=== PATIENT | female | born 1965 | race Caucasian/White ===

== ENCOUNTER 2020-03-09 11:28 | Observation (INO) | payer OTHER ==
[2020-03-09] MEDS ORDERED: SODIUM CHLORIDE 0.9% 1,000 ML IV STA (11:51)
[2020-03-09] MEDS ORDERED: PANTOPRAZOLE 40 MG/10 ML VIAL IVP STA (11:51)
[2020-03-09] MEDS ORDERED: KETOROLAC 15 MG/ML 1 ML VIAL IVP STA (11:51)
[2020-03-09] MEDS ORDERED: METOCLOPRAMIDE 5 MG/ML 2 ML VIAL IVP STA (11:51)
--- NOTE | 2020-03-09 11:55 | ED ---
General Adult HPI - General Chief complaint: Abdominal Pain Stated complaint: abdominal pain Time Seen by Provider: 03/09/20 11:42 Source: patient, RN notes reviewed Mode of arrival: wheelchair Limitations: no limitations - History of Present Illness Initial comments: patient is a pleasant 84-year-old female presenting to the emergency Department with complaints of abdominal discomfort. Onset of symptoms was around a half an hour ago. Patient did have some pressure in her chest however that has resolved. Patient has pressure and fullness of her upper abdomen. There is some radiation towards the right shoulder. Patient did have nausea and did vomit once. There is still some nausea. No constipation or diarrhea. Patient did have a gallbladder attack years ago however symptoms are not similar to this. No back pain. No diaphoresis. No dyspnea. - Related Data Home Medications Medication Instructions Recorded Confirmed Acetaminophen Tab [Tylenol Tab] 1,000 mg PO Q6HR PRN 03/09/20 03/09/20 Ibuprofen [Motrin Ib] 800 mg PO Q8H PRN 03/09/20 03/09/20 guaiFENesin SYRUP 100MG/5ML 600 mg PO Q12H PRN 03/09/20 03/09/20 [Robitussin] Allergies Allergy/AdvReac Type Severity Reaction Status Date / Time No Known Allergies Allergy Verified 03/09/20 13:00 Review of Systems ROS Statement: Those systems with pertinent positive or pertinent negative responses have been documented in the HPI. ROS Other: All systems not noted in ROS Statement are negative. Constitutional: Denies: fever Eyes: Denies: eye pain ENT: Denies: ear pain Respiratory: Denies: cough, dyspnea Cardiovascular: Reports: as per HPI Endocrine: Denies: fatigue Gastrointestinal: Reports: as per HPI, abdominal pain, nausea, vomiting Genitourinary: Denies: dysuria Musculoskeletal: Denies: back pain Skin: Denies: rash Neurological: Denies: weakness Past Medical History Past Medical History: No Reported History Past Surgical History: No Surgical Hx Reported Smoking Status: Never smoker Past Alcohol Use History: None Reported Past Drug Use History: None Reported General Exam Limitations: no limitations General appearance: alert Head exam: Present: normocephalic Eye exam: Present: normal appearance ENT exam: Present: normal oropharynx Neck exam: Present: normal inspection Respiratory exam: Present: normal lung sounds bilaterally. Absent: chest wall tenderness Cardiovascular Exam: Present: regular rate, normal rhythm Expanded Peripheral pulses: 2+: Radial (R), Radial (L), Dorsalis Pedis (R), Dorsalis Pedis (L) GI/Abdominal exam: Present: soft, tenderness (mild tenderness upper abdomen, slightly more on the right), normal bowel sounds. Absent: distended, guarding, rebound, rigid, pulsatile mass Extremities exam: Present: normal inspection. Absent: pedal edema, calf tenderness Neurological exam: Present: alert Psychiatric exam: Present: normal affect, normal mood Skin exam: Present: normal color Course Vital Signs 03/09/20 03/09/20 03/09/20 11:29 11:55 13:14 Temperature 97.0 F L Pulse Rate 88 73 87 Respiratory 18 12 12 Rate Blood Pressure 177/120 141/116 119/68 O2 Sat by Pulse 99 96 96 Oximetry EKG Findings - EKG Comments: EKG Findings:: normal sinus rhythm at 89. IL 140. QRS 98. QT 382. QTC 464. Normal axis. Normal QRS. No acute ST change. Medical Decision Making - Medical Decision Making patient reevaluated and significantly improved. Blood pressure improved. Patient and family updated on results and plan. Case was discussed in detail with Dr. mp medrano, who will admit covering for hospital call. She is in agr eement with repeating cardiac enzymes and HIDA scan. - Lab Data Result diagrams: 03/09/20 12:10 03/09/20 12:10 Lab Results 03/09/20 03/09/20 03/09/20 Range/Units 12:10 12:10 12:10 WBC 7.0 (3.8-10.6) k/uL RBC 4.63 (3.80-5.40) m/uL Hgb 14.7 (11.4-16.0) gm/dL Hct 43.5 (34.0-46.0) % MCV 94.1 (80.0-100.0) fL MCH 31.8 (25.0-35.0) pg MCHC 33.8 (31.0-37.0) g/dL RDW 11.9 (11.5-15.5) % Plt Count 367 (150-450) k/uL Neutrophils % 54 % Lymphocytes % 32 % Monocytes % 5 % Eosinophils % 4 % Basophils % 2 % Neutrophils # 3.8 (1.3-7.7) k/uL Lymphocytes # 2.3 (1.0-4.8) k/uL Monocytes # 0.4 (0-1.0) k/uL Eosinophils # 0.3 (0-0.7) k/uL Basophils # 0.1 (0-0.2) k/uL PT 9.5 (9.0-12.0) sec INR 0.9 (<1.2) APTT 24.7 (22.0-30.0) sec Sodium 139 (137-145) mmol/L Potassium 4.1 (3.5-5.1) mmol/L Chloride 104 (98-107) mmol/L Carbon Dioxide 26 (22-30) mmol/L Anion Gap 9 mmol/L BUN 14 (7-17) mg/dL Creatinine 0.58 (0.52-1.04) mg/dL Est GFR (CKD-EPI)AfAm >90 (>60 ml/min/1.73 sqM) Est GFR (CKD-EPI)NonAf >90 (>60 ml/min/1.73 sqM) Glucose 97 (74-99) mg/dL Calcium 9.6 (8.4-10.2) mg/dL Total Bilirubin 0.7 (0.2-1.3) mg/dL AST 70 H (14-36) U/L ALT 31 (4-34) U/L Alkaline Phosphatase 90 (38-126) U/L Troponin I (0.000-0.034) ng/mL Total Protein 8.0 (6.3-8.2) g/dL Albumin 4.5 (3.5-5.0) g/dL Amylase 48 (30-110) U/L Lipase 252 (23-300) U/L 03/09/20 Range/Units 12:10 WBC (3.8-10.6) k/uL RBC (3.80-5.40) m/uL Hgb (11.4-16.0) gm/dL Hct (34.0-46.0) % MCV (80.0-100.0) fL MCH (25.0-35.0) pg MCHC (31.0-37.0) g/dL RDW (11.5-15.5) % Plt Count (150-450) k/uL Neutrophils % % Lymphocytes % % Monocytes % % Eosinophils % % Basophils % % Neutrophils # (1.3-7.7) k/uL Lymphocytes # (1.0-4.8) k/uL Monocytes # (0-1.0) k/uL Eosinophils # (0-0.7) k/uL Basophils # (0-0.2) k/uL PT (9.0-12.0) sec INR (<1.2) APTT (22.0-30.0) sec Sodium (137-145) mmol/L Potassium (3.5-5.1) mmol/L Chloride (98-107) mmol/L Carbon Dioxide (22-30) mmol/L Anion Gap mmol/L BUN (7-17) mg/dL Creatinine (0.52-1.04) mg/dL Est GFR (CKD-EPI)AfAm (>60 ml/min/1.73 sqM) Est GFR (CKD-EPI)NonAf (>60 ml/min/1.73 sqM) Glucose (74-99) mg/dL Calcium (8.4-10.2) mg/dL Total Bilirubin (0.2-1.3) mg/dL AST (14-36) U/L ALT (4-34) U/L Alkaline Phosphatase (38-126) U/L Troponin I <0.012 (0.000-0.034) ng/mL Total Protein (6.3-8.2) g/dL Albumin (3.5-5.0) g/dL Amylase (30-110) U/L Lipase (23-300) U/L - Radiology Data Radiology results: report reviewed (Called her ultrasound does show cholelithiasis with a stone near the neck. There is some edema, unclear if this is acute. No wall thickening. This was discussed with radiologist.), image reviewed (chest x-ray shows no acute process. KUB shows no acute process) Disposition Clinical Impression: Abdominal pain, Chest pain Disposition: ADMITTED IP TO THIS HOSP Is patient prescribed a controlled substance at d/c from ED?: No Referrals: None,Stated [Primary Care Provider] - 1-2 days Decision Time: 13:46
[2020-03-09 12:26] LABS: Basophils # (A) 0.1 k/uL (0-0.2); Basophils % (A) 2 %; Eosinophils # (A) 0.3 k/uL (0-0.7); Eosinophils % (A) 4 %; HCT 43.5 % (34.0-46.0); HGB 14.7 gm/dL (11.4-16.0); Lymphocytes # (A) 2.3 k/uL (1.0-4.8); Lymphocytes % (A) 32 %; MCH 31.8 pg (25.0-35.0); MCHC 33.8 g/dL (31.0-37.0); MCV 94.1 fL (80.0-100.0); Mean Platelet Volume 6.8; Monocytes # (A) 0.4 k/uL (0-1.0); Monocytes % (A) 5 %; Neutrophils # (A) 3.8 k/uL (1.3-7.7); Neutrophils % (A) 54 %; Platelet Count 367 k/uL (150-450); RBC 4.63 m/uL (3.80-5.40); RDW 11.9 % (11.5-15.5)
--- NOTE | 2020-03-09 12:30 | XR ---
EXAMINATION TYPE: XR chest 2V DATE OF EXAM: 03/09/2020 COMPARISON: NONE HISTORY: Abdominal pain, lower right-sided chest pain TECHNIQUE: Frontal and lateral views of the chest are obtained. FINDINGS: There is no focal air space opacity, pleural effusion, or pneumothorax seen. The cardiac silhouette size is within normal limits. There is increased AP diameter of the chest with relative fl attening the hemidiaphragms, consider underlying COPD. There are overlying cardiac leads. The osseous structures are intact. IMPRESSION: No acute cardiopulmonary process.
--- NOTE | 2020-03-09 12:32 | XR ---
KUB HISTORY: Right upper quadrant pain, abdominal pain Frontal KUB and 2 images The lung bases are clear. There is no evident pneumoperitoneum or bowel obstruction. Bone mineralizat ion is normal. No pathologic calcification. IMPRESSION: Nonspecific KUB
[2020-03-09 12:35] LABS: ALT 31 U/L (4-34); AST 70 U/L (14-36); African American GFR (CKD) >90 (>60 ml/min/1.73 sqM); Albumin 4.5 g/dL (3.5-5.0); Alkaline Phosphatase 90 U/L (38-126); Amylase 48 U/L (30-110); Anion Gap 9 mmol/L; Blood Urea Nitrogen 14 mg/dL (7-17); Calcium 9.6 mg/dL (8.4-10.2); Carbon Dioxide 26 mmol/L (22-30); Chloride 104 mmol/L (98-107); Glucose 97 mg/dL (74-99); Non-African American GFR(CKD) >90 (>60 ml/min/1.73 sqM); Potassium 4.1 mmol/L (3.5-5.1); Sodium 139 mmol/L (137-145); Total Bilirubin 0.7 mg/dL (0.2-1.3)
[2020-03-09 12:54] LABS: INR 0.9 (<1.2); Partial Thromboplastin Time 24.7 sec (22.0-30.0); Prothrombin Time 9.5 sec (9.0-12.0)
--- NOTE | 2020-03-09 13:06 | US ---
EXAMINATION TYPE: US gallbladder DATE OF EXAM: 03/09/2020 COMPARISON: NONE CLINICAL HISTORY: pain. Pt states pain that radiates to right shoulder, vomiting EXAM MEASUREMENTS: Liver Length: 20.5 cm Gallbladder Wall: 0.3 cm CBD: 0.5 cm Right Kidney: 11.3 x 5.0 x 4.9 cm Pancreas: Obscured by bowel gas Liver: Enlarged, echogenic, difficult to penetrate. Gallbladder: Multiple gallstones with one appearing non-mobile in neck. There is no gallbladder wall thickening. There is pericholecystic edema. Esol Teacher Assistant reports negative sonographic Chaney sign. CBD: Normal. Right Kidney: Normal. IMPRESSION: 1. Cholelithiasis. Pericholecystic edema is seen which may be due to acute cholecystitis versus adjac ent liver disease. Nuclear medicine HIDA scan could be obtained for further characterization. 2. Enlarged fatty liver. Dr. Shannan Daniels discussed findings with Dr. Maninder Harrison via the phone on 03/09/2020 at 1:00 PM, a nd results were acknowledged.
[2020-03-09] MEDS ORDERED: NITROGLYCERIN SL TABS 0.4 MG TAB SUBLINGUAL PRN (13:46)
[2020-03-09] MEDS ORDERED: ASPIRIN 81 MG PO STA (13:46)
[2020-03-09] MEDS ORDERED: MORPHINE SULFATE 4 MG/ML SYRINGE IV PRN ×2 (13:46→14:52)
--- NOTE | 2020-03-09 14:43 | P.HPIM ---
History of Present Illness H&P Date: 03/09/20 Chief Complaint: abdominal pain Patient is a 54 yo CF with no past medical history who presented to the emergency department with abdominal pain. On arrival her blood pressure was elevated at 177/120 adn improved with toradol and reglan. She underwent a liver US which showed fatty infiltration of the liver, gallstones, and possible acute cholecystitis. Chest x-ray and KUB showed no acute process. EKG showed normal sinus rhythm at a rate of [address]-T wave changes. Labs showed AST 70, but were otherwise unremarkable. Patient seen and examined at bedside in the emergency department. She reports she had just finished a closing when she started having a pressure in the right side of abdomen and right shoulder. It started as a pressure and then the pain began increasing. She was feeling nausea and then had an episode of emesis that appeared as digested food. Immediately felt better after vomiting but then the pain returned. + SOB, No presyncope, No palpiatations, no diaphoresis, + tremors. + subjective fever X 1 a couple of days at home, she did not take her temperature. + chronic intermittent diarrhea 2 times daily. Unsure of relation to food. Frequent heart burn, relieved with baking soda. Reports that a couple times a year she has a gallbladder attack. Hospitalized once before for gallbladder pain and testing was inconclusive but showed sludge, unsure of which test it was maybe a MRI, but not an ultrasound. Review of Systems Pertinent positives and negatives as discussed in HPI, a complete review of systems was performed and all other systems are negative. Past Medical History Past Medical History: No Reported History Additional Past Surgical History / Comment(s): adenoidectomy Smoking Status: Never smoker Past Alcohol Use History: None Reported, Rare Past Drug Use History: None Reported - Past Family History Father Family Medical History: Coronary Artery Disease (CAD), Myocardial Infarction ([place]) Additional Family Medical History / Comment(s): 5 vessel bypass in his 50s Mother Family Medical History: Diabetes Mellitus, Hypertension Medications and Allergies Home Medications Medication Instructions Recorded Confirmed Type Acetaminophen Tab [Tylenol Tab] 1,000 mg PO Q6HR PRN 03/09/20 03/09/20 History Ibuprofen [Motrin Ib] 800 mg PO Q8H PRN 03/09/20 03/09/20 History guaiFENesin SYRUP 100MG/5ML 600 mg PO Q12H PRN 03/09/20 03/09/20 History [Robitussin] Allergies Allergy/AdvReac Type Severity Reaction Status Date / Time No Known Allergies Allergy Verified 03/09/20 13:00 Physical Exam Osteopathic Statement: *. No significant issues noted on an osteopathic structural exam other than those noted in the History and Physical/Consult. Vitals: Vital Signs Temp Pulse Resp BP Pulse Ox 03/09/20 13:58 98.8 F 86 12 122/67 98 03/09/20 13:14 87 12 119/68 96 03/09/20 11:55 73 12 141/116 96 03/09/20 11:29 97.0 F L 88 18 177/120 99 Intake and Output 03/08/20 03/09/20 03/09/20 22:59 06:59 14:59 Other: Weight 99.79 kg General: non toxic, no distress, appears at stated age Derm: warm, dry Head: atraumatic, normocephalic, symmetric Eyes: EOMI, no lid lag, anicteric sclera, pupils equal round reactive to light ENT: Nose and ears atraumatic, no thrush, no pharyngeal erythema Neck: No thyromegaly, no cervical lymphadenopathy, trachea midline, supple Mouth: no lip lesion, mucus membranes moist Cardiovascular: S1S2 reg, no murmur, positive posterior tibial pulse bilateral, no edema, capillary refill less than 2 seconds Lungs: clear to ascultation bilateral, no ronchi, no rales, no wheeze, no accessory muscle use Abdominal: soft, +tender to palpation RUQ , no guarding, no appreciable organomegaly, normal bowel sounds Ext: no gross muscle atrophy, muscle strength muscle strength 5 out of 5 in all 4 extremities, no contractures Neuro: CN II-XI grossly intact, light touch intact all 4 extremities, finger to nose within normal limits, Psych: Alert, oriented, appropriate affect Results CBC & Chem 7: 03/09/20 12:10 03/09/20 12:10 Labs: Abnormal Lab Results - Last 24 Hours (Table) 03/09/20 Range/Units 12:10 AST 70 H (14-36) U/L Chest x-ray: report reviewed Abdominal x-ray: report reviewed Thrombosis Risk Factor Assmnt - DVT/VTE Prophylaxis DVT/VTE Prophylaxis: Low risk, early ambulation encouraged Assessment and Plan Assessment: Acute abdominal pain, suspect cholecystitis - check HIDA to rule out acute cholecystitis - repeat CMP in AM - NPO - Consult surgery Fatty infiltration of the liver - check AM fasting blood sugar, A1C, Cholesterol profile - weight loss - Hep profile - Establish with PCP Elevated BP without diagnosis of HTN - follow BP suspect pain related. The patient is placed in observation with an anticipated less than [address] ay for evaluation of abdominal pain. Surrogate decision-maker: CODE STATUS:Full DVT prophylaxis: SCDs Discussed with: Patient, nursing, , ED physician Anticipated discharge date: 1-[address]: home A total of 65 minutes was spent on the care of this complex patient more than 50% of the time was spent in counseling and care coordination.
[2020-03-09] MEDS ORDERED: ONDANSETRON 4 MG/2 ML VIAL IVP PRN (14:52)
[2020-03-09] MEDS ORDERED: KETOROLAC 15 MG/ML 1 ML VIAL IVP PRN (14:52)
[2020-03-09] MEDS ORDERED: MELATONIN 3 MG TABLET PO PRN (14:52)
[2020-03-09] MEDS ORDERED: ACETAMINOPHEN TAB 325 MG TAB PO PRN (14:52)
[2020-03-09] MEDS ORDERED: NALOXONE 0.4 MG/ML 1 ML VIAL IV PRN (14:52)
--- NOTE | 2020-03-09 16:54 | NM ---
EXAMINATION TYPE: NM hepatobiliary w CCK DATE OF EXAM: 03/09/2020 COMPARISON: NONE HISTORY: TECHNIQUE: After the intravenous administration of 4.7 mCi Tc 99m Mebrofenin hepatobiliary scintigrap hy is performed. Immediate images post injection. FINDINGS: There is satisfactory initial accumulation of tracer by the liver. The gallbladder is visualized wit hin 12 minutes. The small bowel activity is noted within 45 minutes. At one hour CCK was administer ed, patient was injected with 2.0 mcg of Kinevac, and gallbladder ejection fraction is calculated at 97 %, in the normal range. Therefore there is no scintigraphic evidence of cystic or common bile jess t obstruction to suggest acute cholecystitis or gallbladder dyskinesia. IMPRESSION: Normal exam. No evidence of cystic duct or common bile duct obstruction. No focal liver d efect.
[2020-03-09] MEDS: SODIUM CHLORIDE 0.9% 1,000 ML IV SCH (17:18)
[2020-03-10] MEDS: SODIUM CHLORIDE 0.9% 1,000 ML IV SCH ×2 (01:45→08:08)
[2020-03-10 04:58] VITALS: PULSE 81; RESP 18
[2020-03-10 08:15] VITALS: BP 137/76; TEMP 97.9
[2020-03-10 08:26] LABS: HCT 38.7 % (34.0-46.0); HGB 12.9 gm/dL (11.4-16.0); MCH 32.3 pg (25.0-35.0); MCHC 33.5 g/dL (31.0-37.0); MCV 96.5 fL (80.0-100.0); Mean Platelet Volume 6.4; Platelet Count 278 k/uL (150-450); RDW 12.1 % (11.5-15.5); WBC 4.2 k/uL (3.8-10.6)
[2020-03-10 08:41] LABS: ALT 66 U/L (4-34); AST 73 U/L (14-36); African American GFR (CKD) >90 (>60 ml/min/1.73 sqM); Albumin 3.7 g/dL (3.5-5.0); Alkaline Phosphatase 69 U/L (38-126); Anion Gap 3 mmol/L; Blood Urea Nitrogen 9 mg/dL (7-17); Calcium 8.9 mg/dL (8.4-10.2); Carbon Dioxide 29 mmol/L (22-30); Chloride 108 mmol/L (98-107); Cholesterol 209 mg/dL (<200); Glucose 96 mg/dL (74-99); HDL Cholesterol 50 mg/dL (40-60); LDL Cholesterol,Calculated 129 mg/dL (0-99); Non-African American GFR(CKD) >90 (>60 ml/min/1.73 sqM); Potassium 4.4 mmol/L (3.5-5.1); Sodium 140 mmol/L (137-145); Total Bilirubin 0.8 mg/dL (0.2-1.3); Total Protein 6.7 g/dL (6.3-8.2); Triglycerides 152 mg/dL (<150)
[2020-03-10] MEDS ORDERED: PANTOPRAZOLE 40 MG/10 ML VIAL IVP SCH (09:00)
[2020-03-10] MEDS ORDERED: ASPIRIN 325 MG TAB PO SCH (09:00)
--- NOTE | 2020-03-10 13:27 | P.GSCN ---
History of Present Illness Consult date: 03/10/20 History of present illness: This 54-year-old female presented with a chief complaint of abdominal pain mostly in her right upper quadrant. She's had on and off pain like this before in the past and she still checked gallbladder sludge at that time. She denies any fevers or chills she states she had been eating a fish cotton. She states that today her pain is much better. She states she is hungry and should like to go home. She denies any nausea or vomiting Ultrasound showed gallstones and HIDA scan revealed no evidence of cholecystitis. Past Medical History Past Medical History: No Reported History Additional Past Medical History / Comment(s): Pleurisy History of Any Multi-Drug Resistant Organisms: None Reported Past Surgical History: Adenoidectomy Additional Past Surgical History / Comment(s): adenoidectomy Past Anesthesia/Blood Transfusion Reactions: No Reported Reaction, Motion Sickne ss Smoking Status: Never smoker Past Alcohol Use History: None Reported, Rare Past Drug Use History: None Reported - Past Family History Father Family Medical History: Coronary Artery Disease (CAD), Myocardial Infarction ([place]) Additional Family Medical History / Comment(s): 5 vessel bypass in his 50s Mother Family Medical History: Diabetes Mellitus, Hypertension Medications and Allergies Home Medications Medication Instructions Recorded Confirmed Type Acetaminophen Tab [Tylenol Tab] 1,000 mg PO Q6HR PRN 03/09/20 03/09/20 History Ibuprofen [Motrin Ib] 800 mg PO Q8H PRN 03/09/20 03/09/20 History guaiFENesin SYRUP 100MG/5ML 600 mg PO Q12H PRN 03/09/20 03/09/20 History [Robitussin] Allergies Allergy/AdvReac Type Severity Reaction Status Date / Time No Known Allergies Allergy Verified 03/09/20 13:00 Surgical - Exam Osteopathic Statement: *. No significant issues noted on an osteopathic structural exam other than those noted in the History and Physical/Consult. Vital Signs Temp Pulse Resp BP Pulse Ox 97.0 F L 88 18 177/120 99 03/09/20 11:29 03/09/20 11:29 03/09/20 11:29 03/09/20 11:29 03/09/20 11:29 - General well developed, well nourished, no distress - Respiratory normal expansion, normal respiratory effort - Abdomen Abdomen: soft, non tender - Psychiatric oriented to time, oriented to person, oriented to place Results - Labs 03/10/20 08:03 03/10/20 08:03 Abnormal Lab Results - Last 24 Hours (Table) 03/10/20 Range/Units 08:03 Chloride 108 H (98-107) mmol/L AST 73 H (14-36) U/L ALT 66 H (4-34) U/L Triglycerides 152 H (<150) mg/dL Cholesterol 209 H (<200) mg/dL LDL Cholesterol, Calc 129 H (0-99) mg/dL Diabetes panel 03/10/20 Range/Units 08:03 Sodium 140 (137-145) mmol/L Potassium 4.4 (3.5-5.1) mmol/L Chloride 108 H (98-107) mmol/L Carbon Dioxide 29 (22-30) mmol/L BUN 9 (7-17) mg/dL Creatinine 0.62 (0.52-1.04) mg/dL Glucose 96 (74-99) mg/dL Calcium 8.9 (8.4-10.2) mg/dL AST 73 H (14-36) U/L ALT 66 H (4-34) U/L Alkaline Phosphatase 69 (38-126) U/L Total Protein 6.7 (6.3-8.2) g/dL Albumin 3.7 (3.5-5.0) g/dL Triglycerides 152 H (<150) mg/dL HDL Cholesterol 50 (40-60) mg/dL Calcium panel 03/10/20 Range/Units 08:03 Calcium 8.9 (8.4-10.2) mg/dL Albumin 3.7 (3.5-5.0) g/dL Pituitary panel 03/10/20 Range/Units 08:03 Sodium 140 (137-145) mmol/L Potassium 4.4 (3.5-5.1) mmol/L Chloride 108 H (98-107) mmol/L Carbon Dioxide 29 (22-30) mmol/L BUN 9 (7-17) mg/dL Creatinine 0.62 (0.52-1.04) mg/dL Glucose 96 (74-99) mg/dL Calcium 8.9 (8.4-10.2) mg/dL Adrenal panel 10/27/20 Range/Units 08:03 Sodium 140 (137-145) mmol/L Potassium 4.4 (3.5-5.1) mmol/L Chloride 108 H (98-107) mmol/L Carbon Dioxide 29 (22-30) mmol/L BUN 9 (7-17) mg/dL Creatinine 0.62 (0.52-1.04) mg/dL Glucose 96 (74-99) mg/dL Calcium 8.9 (8.4-10.2) mg/dL Total Bilirubin 0.8 (0.2-1.3) mg/dL AST 73 H (14-36) U/L ALT 66 H (4-34) U/L Alkaline Phosphatase 69 (38-126) U/L Total Protein 6.7 (6.3-8.2) g/dL Albumin 3.7 (3.5-5.0) g/dL Assessment and Plan Assessment: Symptomatic cholelithiasis Plan: Patient has signs and symptoms consistent with symptomatic cholelithiasis possibly chronic cholecystitis. She does not have a white count no fever and HIDA scan was negative for acute cholecystitis. I discussed with the patient that she could be discharged home today on antibiotics and follow-up to my office planned for tomorrow and we will schedule her for an outpatient cholecystectomy at that time. Patient was agreeable with this plan. She was told that if she begins having fevers worsening pain to return to the hospital.
[2020-03-10 15:20] LABS: Hepatitis A Antibody IgM Non-Reactive (Non-Reactive); Hepatitis B Core IgM Non-Reactive (Non-Reactive); Hepatitis B Surface Antigen Non-Reactive (Non-Reactive); Hepatitis C IgG Antibody Non-Reactive (Non-Reactive)
--- NOTE | 2020-03-10 16:02 | P.DS ---
Providers Date of admission: 03/09/20 13:47 Expected date of discharge: 03/10/20 Attending physician: Maribell Galindo DO Consults: 03/09/20 14:24 Consult Physician Urgent Consulting Provider: López Nicholas Consult Reason/Comments: Gallstone, possible acute myrtle Do you want consulting provider notified?: Yes Primary care physician: Stated None Hospital Course: Discharge Diagnosis: Acute Cholecystitis HLD Fatty liver Elevated BP without hx of HTN, resolved Hospital Course: Patient is a 54 yo CF with no past medical history who presented to the emergency department with abdominal pain. On arrival her blood pressure was elevated at 177/120 adn improved with toradol and reglan. She underwent a liver US which showed fatty infiltration of the liver, gallstones, and possible acute cholecystitis. Chest x-ray and KUB showed no acute process. EKG showed normal sinus rhythm at a rate of [address]-T wave changes. Labs showed AST 70, but were otherwise unremarkable. She underwent a HIDA scan which showed a normal ejection fraction gallbladder function. She was seen by surgery who recommended outpatient cholecystectomy. Low-fat, dairy free, healthy diet. They also recommended a course of Augmentin. Her acute hepatitis panel was nonreactive. She was found have elevated cholesterol. We discussed that she likely would benefit from statin therapy however this should not be started until after her cholecystectomy. I have provided with her the prescription and instructions. She did not have a primary care physician prior to hospitalization and she plans on establishing with Dr. Micheal Pinon. Her pain was well-controlled and she was discharged in stable condition. She was given instructions to return to the ER with worsening pain, fever, or other acute concerns. Patient seen and examined at bedside. Has a bloated feeling in her right upper quadrant, no chest pain, no shortness of breath, no nausea. Tolerated her clear liquid diet last night while. Vital signs reviewed and stable. General: non toxic, no distress, appears at stated age Derm: warm, dry Head: atraumatic, normocephalic, symmetric Eyes: EOMI, no lid lag, anicteric sclera Mouth: no lip lesion, mucus membranes moist Cardiovascular: S1S2 reg, no murmur, positive posterior tibial pulse bilateral, Lungs: CTA bilateral, no rhonchi, no rales , no accessory muscle use Abdominal: soft, mild tender to palpation right upper quadrant, no guarding, no appreciable organomegaly Ext: no gross muscle atrophy, no edema, no contractures Neuro: CN II-XI grossly intact, no focal neuro deficits Psych: Alert, oriented, appropriate affect A total of 35 minutes of time were spent preparing this complex discharge hannah mathis . Patient Condition at Discharge: Stable Plan - Discharge Summary Discharge Rx Participant: No New Discharge Prescriptions: New Amoxicillin/Potassium Clav [Augmentin 875-125 Tablet] 1 tab PO Q12HR 7 Days #14 tab Atorvastatin [Lipitor] 40 mg PO DAILY #30 tablet Continue guaiFENesin SYRUP 100MG/5ML [Robitussin] 600 mg PO Q12H PRN PRN Reason: Cough Ibuprofen [Motrin Ib] 800 mg PO Q8H PRN PRN Reason: Pain Or Fever > 100.5 Acetaminophen Tab [Tylenol] 1,000 mg PO Q6HR PRN PRN Reason: Pain Or Fever > 100.5 Discharge Medication List Acetaminophen Tab [Tylenol] 1,000 mg PO Q6HR PRN 03/09/20 [History] Ibuprofen [Motrin Ib] 800 mg PO Q8H PRN 03/09/20 [History] guaiFENesin SYRUP 100MG/5ML [Robitussin] 600 mg PO Q12H PRN 03/09/20 [History] Amoxicillin/Potassium Clav [Augmentin 875-125 Tablet] 1 tab PO Q12HR 7 Days #14 tab 03/10/20 [Rx] Atorvastatin [Lipitor] 40 mg PO DAILY #30 tablet 03/10/20 [Rx] Follow up Appointment(s)/Referral(s): Rafita Red DO [Doctor of Osteopathic Medicine] - 03/11/20 9:45 am None,Stated [Primary Care Provider] - 1-2 days Micheal Pinon [STAFF PHYSICIAN] - 1 Week Patient Instructions/Handouts: Low Fat Diet (DC) Activity/Diet/Wound Care/Special Instructions: Activity: as tolerated Diet: Soft [place] Diet, no dairy, no greasy food Special Instructions: Do not start Lipitor until after gallbladder removal. Total Cholesterol 209 Triglycerides 152 LDL 129 HDL 50 Discharge Disposition: HOME SELF-CARE
== END 2020-03-10 15:20 | disposition home or self-care (01) ==
LOC: EC 11:28 → 1SOBS 13:47
PROVIDERS: ADMIT Internal Medicine; ATTEND Internal Medicine
DX: K80.00 Calculus of gallbladder with acute cholecystitis without obstruction (principal); R03.0 Elevated blood-pressure reading, without diagnosis of hypertension; E78.00 Pure hypercholesterolemia, unspecified; E78.5 Hyperlipidemia, unspecified; K76.0 Fatty (change of) liver, not elsewhere classified; Z82.49 Family history of ischemic heart disease and other diseases of the circulatory system; Z83.3 Family history of diabetes mellitus
CPT/HCPCS: 93005 ×2; 96361 ×3; 96376; 96374; 96375; 99285; 80061; 80053 ×2; 80074; 82150; 83690; 83735; 84484; 85025; 85027; 85610; 85730; 71046; 74018; 76705; 78227; G0378 ×2; A9537; J2765; J2805; J1885; C9113 ×2